=== PATIENT | male | born 1935 | race Caucasian/White ===

== ENCOUNTER 2019-06-13 13:12 | Emergency (ER) | payer MEDICARE, BC ==
[~2019-06-13] VITALS: Ht 167.6 cm; Wt 62.1 kg
[~2019-06-13 13:12] MED LIST: ARICEPT 5 MG TAB5 MG PO; ASPIR 8181 MG PO; NAMENDA 10 MG T10 MG PO; NOHOMEMEDICATIONS; ONDANSETRON HCL4 M2 PO; PROTONIX40 M1 PO; TYLENOL325 MG PO
[2019-06-13] MEDS ORDERED: KEFLEX500 M1 PO (14:59)
[2019-06-13] MEDS ORDERED: ACETAMINOPHEN-1 EAC1 PO (15:01)
[2019-06-13 15:20] VITALS: BP 126/76
== END 2019-06-13 15:21 | disposition home or self-care (01) ==
LOC: M.ERS 13:12
DX: S32.040A Wedge compression fracture of fourth lumbar vertebra, initial encounter for closed fracture (principal); S80.11XA Contusion of right lower leg, initial encounter; K21.9 Gastro-esophageal reflux disease without esophagitis; Z90.89 Acquired absence of other organs; W01.198A Fall on same level from slipping, tripping and stumbling with subsequent striking against other object, initial encounter; Y93.89 Activity, other specified; Y92.89 Other specified places as the place of occurrence of the external cause; Y99.8 Other external cause status

== ENCOUNTER → 2019-06-25 | Outpatient (CLI) | payer MEDICARE, BC ==
[~2019-06-25] MED LIST changes: +ACETAMINOPHEN-1 EAC1 PO; +KEFLEX500 M1 PO
== END ==
LOC: M.MRI 16:53
DX: M43.16 Spondylolisthesis, lumbar region (principal); M48.061 Spinal stenosis, lumbar region without neurogenic claudication; M48.56XA Collapsed vertebra, not elsewhere classified, lumbar region, initial encounter for fracture

== ENCOUNTER 2020-03-19 08:48 | Emergency (ER) | payer MEDICARE, BC ==
[~2020-03-19] VITALS: Ht 167.6 cm; Wt 61.7 kg
[2020-03-19] MEDS ORDERED: KEFLEX500 M1 PO (09:10)
[2020-03-19] MEDS ORDERED: NORCO 5-325 TA1 EAC1 PO (09:10)
[2020-03-19 09:24] VITALS: BP 134/71
== END 2020-03-19 09:26 | disposition home or self-care (01) ==
LOC: M.ERS 08:48
DX: T23.251A Burn of second degree of right palm, initial encounter (principal); T31.0 Burns involving less than 10% of body surface; K21.9 Gastro-esophageal reflux disease without esophagitis; Z90.49 Acquired absence of other specified parts of digestive tract; W86.8XXA Exposure to other electric current, initial encounter; Y93.89 Activity, other specified; Y92.89 Other specified places as the place of occurrence of the external cause; Y99.8 Other external cause status

== ENCOUNTER → 2020-06-29 | Outpatient (CLI) | payer BC ==
[~2020-06-29] MED LIST changes: +NORCO 5-325 TA1 EAC1 PO
[2020-06-29 11:05] LABS: ABSOLUTE EOSINOPHILS 0.1 thou/uL (0.0-0.7); ABSOLUTE LYMPHOCYTES 0.9 thou/uL (0.8-5.3); ABSOLUTE MONOCYTES 0.4 thou/uL (0.0-1.2); BASOPHILS 0.6 %; EOSINOPHILS 1.9 %; HEMATOCRIT 43.1 % (42.0-52.0); HEMOGLOBIN 14.7 gm/dL (14.0-18.0); LYMPHOCYTES 19.9 %; MCH 31.9 pg (26.0-34.0); MCV 93.8 fL (80.0-100.0); MONOCYTES 9.4 %; NUCLEATED RBCS 0 /100WBC; PLATELET COUNT* 142 thou/uL (150-400); POLYS 68.2 %; RBC 4.59 mil/uL (4.50-6.00); RDW-CV 13.2 % (10.5-14.5); WBC 4.4 thou/uL (4.0-11.0)
[2020-06-29 11:22] LABS: ALBUMIN 3.6 g/dL (3.4-5.0); ALKALINE PHOSPHATASE 66 U/L (46-116); ANION GAP 5 mmol/L (7-16); BUN 21 mg/dL (7-18); CALCIUM 9.1 mg/dL (8.5-10.1); CHLORIDE 107 mmol/L (98-107); CHOLESTEROL 183 mg/dL (<200); CO2 32 mmol/L (21-32); CREATININE 1.5 mg/dL (0.6-1.3); GLUCOSE 88 mg/dL (70-99); HDL CHOLESTEROL 62 mg/dL (>40); LDL CHOLESTEROL 98 mg/dL (<100); POTASSIUM 4.4 mmol/L (3.5-5.1); SGOT 23 U/L (15-37); SGPT 20 U/L (30-65); SODIUM 144 mmol/L (136-145); TOTAL BILIRUBIN 0.6 mg/dL (<0.1-1.0); TOTAL PROTEIN 6.5 g/dL (6.4-8.2); TRIGLYCERIDE 117 mg/dL (<150); VLDL 23 mg/dL (<40)
[2020-06-29 11:24] LABS: SERUM ASSESSMENT Clear
[2020-06-29 12:14] LABS: ESR (SEDRATE) 3 mm/hr (0-20)
== END ==
LOC: M.LAB 10:28
PROVIDERS: ATTEND Psychiatry & Neurology Neurology
DX: G30.1 Alzheimer's disease with late onset (principal)

== ENCOUNTER → 2021-11-08 | Outpatient (CLI) | payer BC | LOC: M.MRI 07:53 | PROVIDERS: ATTEND Physician Assistant | DX: K80.80 Other cholelithiasis without obstruction (principal); K86.2 Cyst of pancreas ==